=== PATIENT | male | born 1995 ===

== ENCOUNTER 2021-07-17 16:26 | Emergency (ER) | payer OTHER ==
[2021-07-17 17:10] VITALS: BP 148/64
[2021-07-17] MEDS ORDERED: TETANUS,DIPH,PERTUSS(ACELL) VACCINE 0.5 ML SYRINGE IM ONE (19:43)
[2021-07-17] MEDS ORDERED: LIDOCAINE-MPF (1%) 10 MG/1 ML VIAL 5 ML INFILTRATI ONE (19:43)
[2021-07-17] MEDS ORDERED: IBUPROFEN 600 MG TAB PO ONE (19:43)
[2021-07-17] MEDS ORDERED: AMOXICILLIN/K CLAV 875/125MG TAB PO ONE (19:44)
--- NOTE | 2021-07-17 20:59 | Emergency Department Report ---
- General Chief Complaint: Wound/Laceration Stated Complaint: LIP INJURY Source: patient, police Mode of arrival: Ambulatory Limitations: No Limitations - History of Present Illness Initial Comments: Patient is a 26-year-old -[place] male with no past medical history presents to the ED with complaint of right lateral upper lip laceration after being elbowed in the mouth when playing basketball in jail about 4 hours ago. Patient states that the pain is worse with speech or when he moves his lips. Patient states that he is not up-to-date with his tetanus vaccinations. Patient denies loss of consciousness, headache, dizziness, syncope, seizures, neck pain, chest pain or shortness of breath, nausea and vomiting, abdominal pain or back pain. -: Sudden, hour(s) (4) Location: face (Right lateral upper lip laceration wound) Place: outdoors Patient Tetanus UTD: No (Not up-to-date on tetanus vaccination) Context: accidental (Elbowed on the mouth during basketball practice) Associated Symptoms: pain. denies: loss of feeling/numbness, suspect foreign body present, unable to move injured part, weakness followed by dizziness, nausea/vomiting, fever - Related Data Previous Rx's Medication Instructions Recorded Last Taken Type Ibuprofen [Motrin] 800 mg PO Q8HR PRN #30 tablet 07/17/21 Unknown Rx cephALEXin [Keflex] 500 mg PO Q8HR #30 cap 07/17/21 Unknown Rx Allergies Allergy/AdvReac Type Severity Reaction Status Date / Time No Known Allergies Allergy Unverified 07/17/21 17:06 ED Review of Systems ROS: Stated complaint: LIP INJURY Other details as noted in HPI Constitutional: denies: chills, fever Eyes: denies: eye pain, eye discharge, vision change ENT: other (Right lateral upper lip bleeding laceration wound with localized pain). denies: ear pain, throat pain Respiratory: denies: cough, shortness of breath, wheezing Cardiovascular: denies: chest pain, palpitations Endocrine: no symptoms reported Gastrointestinal: denies: abdominal pain, nausea, diarrhea Genitourinary: denies: urgency, dysuria Musculoskeletal: denies: back pain, joint swelling, arthralgia Skin: other (Bleeding lateral right upper lip laceration wound with localized pain). denies: rash, lesions Neurological: denies: headache, weakness, paresthesias Psychiatric: denies: anxiety, depression Hematological/Lymphatic: denies: easy bleeding, easy bruising ED Past Medical Hx - Past Medical History Previous Medical History?: No - Surgical History Additional Surgical History: FACE SURGERY - Medications Home Medications: Home Medications Medication Instructions Recorded Confirmed Last Taken Type Ibuprofen [Motrin] 800 mg PO Q8HR PRN #30 tablet 07/17/21 Unknown Rx cephALEXin [Keflex] 500 mg PO Q8HR #30 cap 07/17/21 Unknown Rx ED Physical Exam - General Limitations: No Limitations General appearance: alert, in no apparent distress - Head Head exam: Present: atraumatic, normocephalic, normal inspection - Eye Eye exam: Present: normal appearance, PERRL, EOMI Pupils: Present: normal accommodation - ENT ENT exam: Present: mucous membranes moist, TM's normal bilaterally, normal external ear exam, other (Bleeding 1 cm laceration wound on lateral right upper lip) - Neck Neck exam: Present: normal inspection, full ROM - Respiratory Respiratory exam: Present: normal lung sounds bilaterally. Absent: respiratory distress, wheezes, rales, rhonchi, chest wall tenderness, accessory muscle use, decreased breath sounds, prolonged expiratory - Cardiovascular Cardiovascular Exam: Present: normal rhythm, bradycardia, normal heart sounds. Absent: systolic murmur, diastolic murmur, rubs, gallop - GI/Abdominal GI/Abdominal exam: Present: soft, normal bowel sounds. Absent: tenderness, guarding, rebound, hyperactive bowel sounds, hypoactive bowel sounds, organomegaly - Extremities Exam Extremities exam: Present: normal inspection, full ROM, normal capillary refill - Back Exam Back exam: Present: normal inspection, full ROM. Absent: tenderness, CVA tenderness (R), CVA tenderness (L), muscle spasm, paraspinal tenderness, vertebral tenderness - Neurological Exam Neurological exam: Present: alert, oriented X3, CN II-XII intact, normal gait, reflexes normal - Psychiatric Psychiatric exam: Present: normal affect, normal mood - Skin Skin exam: Present: warm, dry, intact, normal color, other (Bleeding 1 cm laceration wound on lateral right upper lip). Absent: rash ED Course Vital Signs 07/17/21 17:09 Temperature 97.9 F Pulse Rate 58 L Respiratory 18 Rate Blood Pressure 148/64 O2 Sat by Pulse 99 Oximetry - Laceration /Wound Repair Right Lateral Face Wound Location: mouth (Lateral right upper lip laceration wound) Wound Length (cm): 1 Wound's Depth, Shape: superficial, irregular Wound Explored: contaminated Irrigated w/ Saline (ccs): 200 Betadine Prep?: No Anesthesia: 1% Lidocaine Volume Anesthetic (ccs): 4 Wound Debrided: extensive Wound Repaired With: sutures Suture Size/Type: 5:0, proline Number of Sutures: 4 Layer Closure?: No Sterile Dressing Applied?: No Progress: Patient tolerated the procedure well. ED Medical Decision Making - Medical Decision Making This is a 26-year-old -[place] male with no past medical history presents to the ED with complaint of right lateral upper lip laceration after being elbowed in the mouth when playing basketball in jail about 4 hours ago. Patient states that the pain is worse with speech or when he moves his lips. Patient states that he is not up-to-date with his tetanus vaccinations. In the ED, patient is alert and oriented x3 and is not in any distress with normal vital signs. Patient was treated for pain in the ED and also received booster tetanus vaccinations. The lateral right upper lip laceration wound was cleaned extensively with normal saline and sutured per protocol. Patient tolerated procedure well. Patient was discharged home on pain medication and prophylactic antibiotics and advised to follow-up with his primary care physician in 7 to 10 days for reevaluation or return to the ED immediately if symptoms get worse, otherwise return to the ED or follow-up with his primary care physician in 8 to 10 days for suture removal. - Differential Diagnosis Facial contusion; lip laceration; dental injury Critical care attestation.: If time is entered above; I have spent that time in minutes in the direct care of this critically ill patient, excluding procedure time. ED Disposition Clinical Impression: Laceration of lip without complication Qualifiers: Encounter type: initial encounter Qualified Code(s): S01.511A - Laceration without foreign body of lip, initial encounter Contusion of face Qualifiers: Encounter type: initial encounter Qualified Code(s): S00.83XA - Contusion of other part of head, initial encounter Disposition: HOME / SELF CARE / HOMELESS Is pt being admited?: No Does the pt Need Aspirin: No Condition: Stable Instructions: Wound Infection, [id number], Facial or Scalp Contusion, [id number], Mouth Laceration, [id number], Sutured Wound Care, [id number] Additional Instructions: Take medications with food, drink plenty of fluids and follow-up with your primary care physician in 5 to 7 days for reevaluation. Return to the ED immediately if symptoms get worse. Otherwise return to the ED or to your primary care physician in 8 to 10 days for suture removal. Prescriptions: cephALEXin [Keflex] 500 mg PO Q8HR #30 cap Ibuprofen [Motrin] 800 mg PO Q8HR PRN #30 tablet PRN Reason: Severe pain Referrals: [facility] [Provider Group] - 7-10 days Time of Disposition: 21:03 Print Language: MONGOLIAN
== END 2021-07-17 21:13 | disposition home or self-care (01) ==
LOC: ED 16:26
DX: S01.511A Laceration without foreign body of lip, initial encounter (principal); Z79.899 Other long term (current) drug therapy; W21.05XA Struck by basketball, initial encounter; Y93.89 Activity, other specified; Y92.89 Other specified places as the place of occurrence of the external cause; Y99.8 Other external cause status
CPT/HCPCS: 90471; 90715; 99282